=== PATIENT | female | born 1940 | race Caucasian/White ===

== ENCOUNTER 2017-10-25 06:48 | Inpatient (IN) ==
--- NOTE | 2017-10-24 21:42 | Discharge Summary ---
<Karishma Kuo E - Last Filed: 10/24/17 21:39> Date of Encounter: 10/24/17 - Discharge Diagnosis (1) Arthritis of right shoulder region Priority: Primary Status: Chronic (2) Depression Priority: Secondary Status: Chronic Qualifiers: Depression Type: unspecified Qualified Code(s): F32.9 - Major depressive disorder, single episode, unspecified (3) Anxiety Priority: Secondary Status: Chronic (4) Irritant dermatitis Priority: Secondary Status: Chronic (5) Osteoporosis Priority: Secondary Status: Chronic Qualifiers: Osteoporosis type: unspecified Presence of current pathological fracture: unspecified Qualified Code(s): M81.0 - Age-related osteoporosis without current pathological fracture - Discharge Medications Home Medications: OxyCODONE Immed Rel [Roxicodone 5 MG] 5 mg PO Q6HR PRN 7 Days #28 tablet [Rx] Atorvastatin Calcium [Lipitor] 20 mg PO HS 10/25/17 [History] Calcium Carbonate/Vitamin D3 [Oyster Shell 250 mg + Vit D Tb] 1 tab PO DAILY 08/30 [History] Ergocalciferol (VITAMIN D2) [Vitamin D] 400 unit PO DAILY 10/25/17 [History] Estradiol 0.5 mg PO DAILY 10/25/17 [History] Glucosamine/D3/Boswellia Vonda [Osteo Bi-Flex Tablet] 1 tab PO DAILY 10/25/17 [ History] Irbesartan [Avapro] 300 mg PO DAILY 10/25/17 [History] PARoxetine HCl [Paroxetine HCl] 10 mg PO DAILY 10/25/17 [History] amLODIPine [Norvasc] 5 mg PO DAILY 10/25/17 [History] Allergies/Adverse Reactions: 3 Allergy/AdvReac Type Severity Reaction Status Date / Time morphine AdvReac Rash Verified 10/25/17 07:29 Penicillins [PCN] AdvReac Rash Verified 10/25/17 07:29 Primary care physician: Pankaj Falcon MD - Patient Status Disposition: Home, Self-Care Condition: Good - Discharge Instructions Instructions: Joint Replacement Surgery (DC), Shoulder Pain (GEN) Follow Up With: Pnakaj Falcon MD [Primary Care Provider] - - Hospital Course Hospital course: Ms. Boyer is a 77 year old female - Time Spent with Patient Total time spent providing and/or coordinating discharge services: <Barrera Peguero Naga - Last Filed: 10/25/17 17:41> Date of Encounter: 10/25/17 Time of Encounter: 17:41 - Discharge Diagnosis (1) Arthritis of right shoulder region Priority: Primary Status: Chronic (2) Depression Priority: Secondary Status: Chronic Qualifiers: Depression Type: unspecified Qualified Code(s): F32.9 - Major depressive disorder, single episode, unspecified (3) Anxiety Priority: Secondary Status: Chronic (4) Irritant dermatitis Priority: Secondary Status: Chronic (5) Osteoporosis Priority: Secondary Status: Chronic Qualifiers: Osteoporosis type: unspecified Presence of current pathological fracture: unspecified Qualified Code(s): M81.0 - Age-related osteoporosis without current pathological fracture (6) Status post total replacement of right shoulder Status: Acute Primary care physician: Pankaj Falcon MD - Patient Status Functional capacity at discharge: independent ambulation Overall status at discharge: patient is progressing back to baseline - Hospital Course Hospital course: Ms. Boyer is a 77 year old female Status post left total shoulder replacement discharged home same day - Time Spent with Patient Total time spent providing and/or coordinating discharge services:
--- NOTE | 2017-10-25 06:58 | History & Physical Report ---
Date of Encounter: 10/25/17 Time of Encounter: 06:57 24 Hour HP Update - Instructions Instructions: If the History and Physical is less than 30 days old and was completed prior to A.M. admission and or procedure and has NOT been updated on calendar day of procedure please complete this update prior to performing procedure. - Update Patient reports changes in Medical Condition: No Changes in examination, assessment, or condition: No Changes in Medication: No Preop tests/diagnostics Reviewed: Yes Surgery Remains Indicated: Yes Consent for Planned Operative Procedure(s) Verified: Yes - Pre-Operative Checklist Preoperative Checklist Indicated: No Prophylactic Antibiotic Ordered: Yes Is VTE Prophylaxis Indicated?: Yes
[2017-10-25] MEDS ORDERED: *HR* Propofol 200 MG/20 ML VIAL IVP ONE (07:15)
[2017-10-25] MEDS ORDERED: *HR* Succinylcholine 200 MG/10 ML VIAL IVP ONE (07:15)
[2017-10-25] MEDS ORDERED: Lidocaine -MPF 2% 2 ML VIAL ONE (07:15)
[2017-10-25] MEDS ORDERED: Ondansetron 4 MG/2 ML VIAL ONE (07:15)
[2017-10-25] MEDS ORDERED: *HR* FentaNYL (PF) 100 MCG/2 ML VIAL ONE (07:15)
--- NOTE | 2017-10-25 07:32 | Anesthesia Evaluation PreOp ---
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 History: Other (anxiety, depression) Other Medical History: Denies Any Significant HX Anesthesia History: Past Anesthesia (hysterectomy, breast reduction, c section, eyelid), Problems (PONV) Alcohol Use: none Drug use: none Medications and Allergies OxyCODONE Immed Rel [Roxicodone 5 MG] 5 mg PO Q6HR PRN 7 Days #28 tablet [Rx] 3 Allergy/AdvReac Type Severity Reaction Status Date / Time morphine AdvReac Rash Verified 10/25/17 07:29 Penicillins [PCN] AdvReac Rash Verified 10/25/17 07:29 - Meds/Allergy Pre-op Review Medications Reviewed: Yes Allergies Reviewed: Yes Beta Blockers on Current Med List: No Anesthesia Results - Labs Laboratory Tests 10/11/17 10/11/17 10/11/17 09:10 09:12 09:12 WBC 5.8 Hgb 12.8 Hct 39.6 Plt Count 256 PT 11.4 INR 1.1 APTT 30.2 Sodium 138 Potassium 3.9 Chloride 105 Carbon Dioxide 24 BUN 17 Creatinine 0.79 Glucose 113 H - Imaging EKG: report reviewed (NSR 10/14/17) Anesthesia Exam O2 Sat Height 1.68 m Height 1.68 m Weight 74.843 kg Weight 74.843 kg O2 Sat by Pulse Oximetry 95 Vital Signs Temp Pulse Resp BP Pulse Ox 98.3 F 70 18 128/64 95 10/25/17 07:15 10/25/17 07:15 10/25/17 07:15 10/25/17 07:15 10/25/17 07:15 Height: 1.68m Weight: 74kg NPO (# of Hours): >8 Pain Scale: 0 Pain Scale Used: Numeric (1 - 10) - HEENT Pupil (Motor): Pupils equal, EOMI Mallampati: II Teeth: Normal Oral Opening: Greater than 3 - SERGING MACHINE OPERATOR AUTOMATIC LOC: Oriented 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
[2017-10-25] MEDS ORDERED: *HR* Ropivacaine/PF 0.5% 20 ML VIAL ONE (07:42)
[2017-10-25] MEDS ORDERED: Scopolamine Patch 1.5 MG PATCH.TD72 TD ONE (07:44)
[2017-10-25] MEDS ORDERED: Acetaminophen IV 1,000 MG/100 ML INFUS..BTL IVPB ONE (07:45)
[2017-10-25] MEDS ORDERED: *HR* Labetalol 20 MG/4 ML SYRINGE IVP PRN (07:46)
[2017-10-25] MEDS ORDERED: *HR* FentaNYL (PF) 100 MCG/2 ML VIAL IVP PRN (07:46)
[2017-10-25] MEDS ORDERED: *HR* Promethazine 25 MG/ML VIAL IVP PRN (07:46)
[2017-10-25] MEDS ORDERED: Ondansetron 4 MG/2 ML VIAL IVP ONE (07:46)
[2017-10-25] MEDS ORDERED: Clindamycin 900 MG/50 ML 900 MG/50 ML IV.SOLN IVPB ONE (07:49)
[2017-10-25] MEDS ORDERED: Ringers Solution, Lactated 1,000 ML IVC SCH ×2 (08:00→10:45)
--- NOTE | 2017-10-25 08:25 | Anesthesia Procedures ---
Date of Encounter: 10/25/17 Time of Encounter: 08:15 Procedures: Anesthesia - Nerve Block Procedure Date: 10/25/17 Time: 08:15 Surgical Procedure: right total shoulder replacement Checklist: Correct Patient Identifier, Correct procedure, History checked Correct side: Right Blood Thinner: No Monitor Applied: EKG, BP, Pulse Oximetry Supplemental Oxygen via Nasal Cannula (L/min): 2 Sedation: Fentanyl (mcg): 100 Indication: Post Op Analgesia Pre-op Neuro Deficits: No Block Type: Supraclavicular, Other (ICP) Catheter placed: No Sterile Technique: Yes Ultrasound used: Yes Anatomy identified: Yes Visual spread of Local: Yes Neuro Stimulation: No Blood on Needle Aspiration: No Smooth Injection of Local: Yes Pain with Injection of Local: No Prep: Chlorhexadine Needle: 22 x 50 mm Stimuplex Local: Ropivacaine (05% with 8 of decadron) Volume (cc): 30 Number of Attempts: 1 Complications: None/effective block Vitals: vss Comments: performed by HEMALATHA Hernandez
[2017-10-25] MEDS ORDERED: Ketamine *HR* 500 MG/10 ML MDV ONE (08:31)
[2017-10-25] MEDS ORDERED: EPHEDrine 50 MG/ML VIAL ONE (08:45)
[2017-10-25] MEDS ORDERED: Metoclopramide 10 MG/2 ML VIAL ONE (08:49)
[2017-10-25] MEDS ORDERED: Dexamethasone 4 MG/ML VIAL ONE (08:55)
--- NOTE | 2017-10-25 09:36 | Orthopedic Operative Note ---
Date of procedure: 10/25/17 Pre-op diagnosis: Right shoulder arthritis Post-op diagnosis: same Procedure: Procedure: Right Total Shoulder Replacement biceps tenodesis Estimated blood loss: 100 cc Hardware:Arthrex glenoid: Medium humeral stem: 6 humeral head 48 Exam Under anesthesia:restricted Procedural Notes: Grade 4 arthritic changes humeral head and avoid socket. Operative procedure: The patient was brought to the operating room and placed on the operating room table. After general anesthesia was administered the operative shoulder was examined. Findings were noted. The patient was placed in the modified beachchair position. All pressure points were padded appropriately. And the head was stabilized in the neutral position. The operative extremity was prepped and draped in the sterile surgical fashion. The patient received IV antibiotics prior to skin incision. A standard deltopectoral approach was made to the operative shoulder. Incision was made to the skin and subcutaneous tissue,hemo stasis was obtained with Bovie cautery. Using careful blunt dissection the cephalic vein was identified and mobilized medially. The deltopectoral interval was developed and the clavipectoral fascia was incised. The subscap was released off the lesser tuberosity and tagged with #2 FiberWire suture. The humerus was dislocated osteophytes were present were removed and the humeral cut was made along the anatomic neck. Anterior and posterior Bankart retractors were placed to expose the glenoid. The glenoid guide was seated and the centering hole was made. It was reamed with the appropriate reamer. The finishing guide was seated superior and inferior drill holes were placed. Patient punch was seated trial was seated had good fit and fixation. The medium glenoid component was cemented in place held with digital pressure until cemented hardened. A good fit and fixation. The humerus was redislocated and prepared with the diaphyseal reamers, followed by a broaching process up to the appropriate size 6 in the patient's anatomic version. Trial components were removed and drill holes were placed in the bicipital groove x 2. The apex stem was filled with a #5 FiberWire suture through the holes in the stem the 2 lateral fin holes were passed through the drill holes in the lesser tuberosity and passed through the biceps tendon. The component was impacted in place the neck angle and version were locked in place with the inferior and superior screws the trial head was seated and secured in the appropriate position shoulder had good motion and stability. Trial head was removed we will have was seated and secured subscap was repaired to the humerus as well as the humeral stem incorporating the biceps tendon for biceps tenodesis and a subscap repair. The deltopectoral interval was closed with a running #1 PDS suture, subcutaneous tissue was irrigated and closed with 0 PDS suture, the skin was closed with Dermabond. The patient was placed in a sterile dressing, abduction brace and extubated. The patient was then transferred to the recovery room in stable condition. Anesthesia: GETA Surgeon: Barrera Peguero Was there an construction project assistant present: Yes Education Assistant: Karishma Kuo Estimated blood loss (cc): 100 Condition: stable Disposition: PACU
--- NOTE | 2017-10-25 10:17 | Anesthesia Evaluation Post Op ---
Date of Encounter: 10/25/17 Time of Encounter: 10:17 - Vital Signs Vital Signs: Vital Signs/O2 Sat, Most Current Temp Pulse Resp BP Pulse Ox 97.4 F L 80 18 118/63 94 10/25/17 09:44 10/25/17 10:14 10/25/17 10:14 10/25/17 10:14 10/25/17 10:14 - Lungs Lungs: Clear Ascult./Percussion - Airway Airway: Non-obstructed - Cardiovascular Regular Rate - Mental Status Mental Status: Alert & Oriented, Answers Appropriately - Pain Pain Scale: 0 Pain Scale used: Numeric (1 - 10) - Nausea Vomiting Nausea Vomiting: Not Present - Hydration Hydration: Tolerates oral liquids - Discharge PostOp Status: Transfer Patient to floor Attestation: I have assessed this patient and find they meet discharge criteria.
[2017-10-25 10:25] LABS: Hematocrit 35.1 % (35.3-44.9); Hemoglobin 11.4 g/dL (11.5-15.4)
[2017-10-25] MEDS ORDERED: Sennosides 8.6 MG TABLET PO PRN (10:45)
[2017-10-25] MEDS ORDERED: Cholecalciferol (D-3) 1,000 UNIT TABLET PO SCH (10:45)
[2017-10-25] MEDS ORDERED: Naloxone 0.4 MG/ML INJ IVP PRN (10:45)
[2017-10-25] MEDS ORDERED: amLODIPine 5 MG TABLET PO SCH (10:45)
[2017-10-25] MEDS ORDERED: MOM Conc 10 ML UD.LIQ PO PRN (10:45)
[2017-10-25] MEDS ORDERED: *HR* OxyCODONE Immed Rel 5 MG TABLET PO PRN ×2 (10:45)
[2017-10-25] MEDS ORDERED: Ondansetron 4 MG/2 ML VIAL IVP PRN (10:45)
[2017-10-25] MEDS ORDERED: Temazepam 15 MG CAPSULE PO PRN (10:45)
[2017-10-25] MEDS ORDERED: *HR* Enoxaparin 30 MG/0.3 ML SYRINGE SQ SCH ×3 (13:00→18:00)
[2017-10-25 14:12] VITALS: BP 115/66
[2017-10-25] MEDS ORDERED: Clindamycin 900 MG/50 ML 900 MG/50 ML IV.SOLN IVPB SCH (16:00)
== END 2017-10-25 16:21 | disposition home or self-care (01) | DRG 483 ==
LOC: SAMDAY 06:48 → 3NENU 10:56
PROVIDERS: ADMIT Orthopaedic Surgery; ATTEND Orthopaedic Surgery